=== PATIENT | female | born 1940 | race Caucasian/White ===

== ENCOUNTER 2018-12-29 20:14 | Emergency (ER) | payer MEDICARE, OTHER ==
[~2018-12-29] VITALS: Ht 152.4 cm; Wt 95.9 kg
[~2018-12-29 20:14] MED LIST: AMLO5TAB66 PO; ASPI81TA87 PO; CARV6.2534 PO; HYDR12.530 PO; INSU100C6 SQ; INSU3INS3 SQ; LISI40TA4 PO; OMEP-50 PO; ROSU10TA22 PO
[2018-12-29 21:11] LABS: GLUCOSE,POINT OF CARE 132 MG/DL (70-110)
[2018-12-29] MEDS ORDERED: XALA2.5OS OU (21:32)
[2018-12-29] MEDS ORDERED: CETI10TA59 PO (21:32)
[2018-12-29] MEDS ORDERED: HYDR-2924 PO (21:32)
[2018-12-29] MEDS ORDERED: CARV25 PO (21:32)
[2018-12-29] MEDS ORDERED: BRIM15DR8 OU (21:32)
[2018-12-29] MEDS ORDERED: ATOR20TA86 PO (21:32)
[2018-12-29] MEDS ORDERED: LOSA50TA64 PO (21:32)
[2018-12-29] MEDS ORDERED: INSLAN SQ (21:32)
[2018-12-29] MEDS ORDERED: INSNOV SQ ×2 (21:32)
[2018-12-29] MEDS ORDERED: NITR0.4T52 SL (21:32)
[2018-12-29] MEDS ORDERED: OMEP20 PO (21:32)
[2018-12-29] MEDS ORDERED: DULA0.75 SQ (21:32)
[2018-12-29] MEDS ORDERED: ADV100 IH (21:32)
[2018-12-29] MEDS ORDERED: ISOS10TA16 PO (21:32)
[2018-12-29 21:53] LABS: BASOPHILS % (AUTO) 1.1 % (0.0-2.0); HEMATOCRIT 39.3 % (36-46); HEMOGLOBIN 12.6 g/dL (12.0-16.0); LYMPHOCYTES # (AUTO) 2.3 K/uL (1.0-4.8); MEAN CORPUSCULAR HEMOGLOBIN 29.7 pg (26.0-34.0); MEAN CORPUSCULAR HGB CONC 32.2 G/dL (31.0-37.0); MEAN CORPUSCULAR VOLUME 92 fL (80-100); MONOCYTES # (AUTO) 0.9 K/uL (0.1-1.0); MONOCYTES % (AUTO) 8.7 % (2.0-9.0); NEUTROPHILS # (AUTO) 5.8 K/uL (1.8-7.7); NEUTROPHILS % (AUTO) 59.2 % (40.0-70.0); PLATELET COUNT (AUTO) 238 K/uL (150-450); RED BLOOD CELL COUNT(AUTO) 4.25 MIL/uL (4.00-5.20); RED CELL DISTRIBUTION WIDTH 13.1 % (11.5-14.5)
[2018-12-29 22:01] LABS: APPEARANCE,URINE CLEAR (CLEAR); BILIRUBIN,URINE NEGATIVE (NEGATIVE); GLUCOSE, URINE (UA) NEGATIVE (NEGATIVE); KETONES,URINE NEGATIVE (NEGATIVE); LEUKOCYTE ESTERASE ,URINE SMALL (NEGATIVE); NITRATE,URINE NEGATIVE (NEGATIVE); OCCULT BLOOD,URINE NEGATIVE (NEGATIVE); PROTEIN,URINE NEGATIVE (NEGATIVE); UROBILINOGEN,URINE 0.2 mg/dL (<=1.0)
[2018-12-29 22:02] LABS: CALCIUM, TOTAL 9.4 mg/dL (8.8-10.5); CREATININE 1.01 mg/dL (0.60-1.30); POTASSIUM 4.1 mmol/L (3.5-5.1)
[2018-12-29 22:08] LABS: ALBUMIN 3.6 g/dL (3.4-5.0); BILIRUBIN,TOTAL 0.4 mg/dL (0.1-1.0); TOTAL PROTEIN, SERUM 7.4 g/dL (6.4-8.2)
[2018-12-29 22:17] LABS: BACTERIA,URINE Rare /HPF (None Seen); RBC,URINE None Seen /HPF (0-2); SQUAMOUS EPITHELIAL CELL,UR Few /LPF (None Seen); WBC,URINE 0-2 /HPF (0-5)
[2018-12-29 22:58] VITALS: BP 141/72
== END 2018-12-29 23:01 | disposition home or self-care (01) ==
LOC: EMS 20:14
DX: R42 Dizziness and giddiness (principal); F41.9 Anxiety disorder, unspecified; I10 Essential (primary) hypertension; E11.9 Type 2 diabetes mellitus without complications; E78.00 Pure hypercholesterolemia, unspecified; Z79.899 Other long term (current) drug therapy; Z79.82 Long term (current) use of aspirin
CPT/HCPCS: 93005

== ENCOUNTER 2022-02-22 13:22 | Emergency (ER) | payer MEDICARE, OTHER ==
[~2022-02-22] VITALS: Ht 154.9 cm; Wt 81.8 kg
[~2022-02-22 13:22] MED LIST changes: -AMLO5TAB66 PO; +ATOR20TA86 PO; +BRIM15DR8 OU; +CARV25 PO; -CARV6.2534 PO; +CETI-450 PO; +DULA0.75 SQ; +FLUT1DIS4 IH; -HYDR12.530 PO; +HYDR50TA36 PO; +INSLAN SQ; +INSNOV SQ; -INSU100C6 SQ; -INSU3INS3 SQ; +ISOS10TA16 PO; -LISI40TA4 PO; +LOSA-382 PO; +NITR0.4T52 SL; -OMEP-50 PO; +OMEP20 PO; -ROSU10TA22 PO; +XALA2.5OS OU
[2022-02-22] MEDS ORDERED: ACETAMINOPHEN 500 MG TABLET PO ONE (15:15)
[2022-02-22 17:26] LABS: GLUCOMETER DEV NAME(LOC) ERT.5; GLUCOSE,POINT OF CARE 88 MG/DL (70-110)
[2022-02-22] MEDS ORDERED: INSU3INS3 SQ (18:22)
[2022-02-22] MEDS ORDERED: CARV12.530 PO (18:22)
[2022-02-22] MEDS ORDERED: ISOS30TA92 PO (18:22)
[2022-02-22] MEDS ORDERED: SPIR-37 PO (18:22)
[2022-02-22] MEDS ORDERED: NIFE-79 PO (18:22)
[2022-02-22] MEDS ORDERED: VALS160T31 PO (18:22)
[2022-02-22] MEDS ORDERED: NIFE30TA98 PO (18:22)
[2022-02-22] MEDS ORDERED: DAPA5TAB PO (18:22)
[2022-02-22] MEDS ORDERED: LATA2.5D14 OU (18:22)
[2022-02-22] MEDS ORDERED: FLUT16SP NASAL (18:22)
[2022-02-22] MEDS ORDERED: ATOR40TA71 PO (18:22)
[2022-02-22] MEDS ORDERED: ACET-66 PO (19:16)
[2022-02-22 19:19] VITALS: BP 110/61
== END 2022-02-22 19:45 | disposition home or self-care (01) ==
LOC: EMS 13:29
DX: S13.4XXA Sprain of ligaments of cervical spine, initial encounter (principal); S29.012A Strain of muscle and tendon of back wall of thorax, initial encounter; S00.83XA Contusion of other part of head, initial encounter; R04.0 Epistaxis; E11.9 Type 2 diabetes mellitus without complications; E78.00 Pure hypercholesterolemia, unspecified; I10 Essential (primary) hypertension; W01.0XXA Fall on same level from slipping, tripping and stumbling without subsequent striking against object, initial encounter; Y93.01 Activity, walking, marching and hiking; Y92.009 Unspecified place in unspecified non-institutional (private) residence as the place of occurrence of the external cause; Y99.8 Other external cause status
CPT/HCPCS: 70160; 72040; 72070; 82962; 99285

== ENCOUNTER 2024-05-17 02:56 | Inpatient (IN) | payer MEDICARE, OTHER ==
[~2024-05-17] VITALS: Ht 152.4 cm; Wt 92.1 kg
[~2024-05-17 02:56] MED LIST changes: +ACET-66 PO; -ATOR20TA86 PO; +ATOR40TA71 PO; -BRIM15DR8 OU; +BRIM5DRO9 OU; +CARV12.530 PO; -CARV25 PO; +DAPA5TAB PO; +FLUT16SP NASAL; -FLUT1DIS4 IH; -INSLAN SQ; -INSNOV SQ; +INSU3INS3 SQ; -ISOS10TA16 PO; +ISOS30TA92 PO; -LOSA-382 PO; +NIFE-79 PO; +SPIR-37 PO; +VALS160T31 PO
[2024-05-17 03:39] LABS: BASOPHILS % (AUTO) 1.1 % (0.0-2.0); HEMATOCRIT 39.4 % (36-46); HEMOGLOBIN 13.3 g/dL (12.0-16.0); LYMPHOCYTES # (AUTO) 2.1 K/uL (1.0-4.8); LYMPHOCYTES % (AUTO) 25.7 % (22.0-44.0); MEAN CORPUSCULAR HEMOGLOBIN 31.1 pg (26.0-34.0); MEAN CORPUSCULAR HGB CONC 33.9 G/dL (31.0-37.0); MEAN CORPUSCULAR VOLUME 92 fL (80-100); MONOCYTES # (AUTO) 0.9 K/uL (0.1-1.0); MONOCYTES % (AUTO) 10.4 % (2.0-9.0); NEUTROPHILS # (AUTO) 4.7 K/uL (1.8-7.7); NEUTROPHILS % (AUTO) 56.8 % (40.0-70.0); PLATELET COUNT (AUTO) 193 K/uL (150-450); RED BLOOD CELL COUNT(AUTO) 4.29 MIL/uL (4.00-5.20); RED CELL DISTRIBUTION WIDTH 12.9 % (11.5-14.5); WHITE BLOOD COUNT (AUTO) 8.4 K/uL (4.5-11.0)
[2024-05-17 04:05] LABS: CALCIUM, TOTAL 9.2 mg/dL (8.8-10.5); CREATININE 1.41 mg/dL (0.60-1.30); POTASSIUM 3.6 mmol/L (3.5-5.1)
[2024-05-17 04:11] LABS: ALBUMIN 3.4 g/dL (3.4-5.0); BILIRUBIN,DIRECT 0.2 mg/dL (0.00-0.20); BILIRUBIN,TOTAL 0.8 mg/dL (0.1-1.0); TOTAL PROTEIN, SERUM 7.1 g/dL (6.4-8.2)
[2024-05-17 04:13] LABS: TROPONIN I-HIGH SENSITIVITY 50 ng/L (<51)
[2024-05-17] MEDS: HydrALAZINE HCL 25 MG TABLET PO ONE (06:51)
[2024-05-17 07:13] LABS: TROPONIN I-HIGH SENSITIVITY 90 ng/L (<51)
[2024-05-17] MEDS: ASPIRIN 325 MG TABLET PO ONE (07:32)
[2024-05-17] MEDS ORDERED: ASPI-1444 PO (07:53)
[2024-05-17] MEDS ORDERED: [UNRECOGNIZED DRUG - CODE] SQ (07:53)
[2024-05-17] MEDS ORDERED: CETI10TA58 PO (07:53)
[2024-05-17] MEDS ORDERED: DULA1.5P SQ (07:53)
[2024-05-17] MEDS ORDERED: OMEP40CA21 PO (07:53)
[2024-05-17] MEDS ORDERED: ATOR-2 PO (07:53)
[2024-05-17] MEDS ORDERED: FLUT1BLS9 IH (07:53)
[2024-05-17] MEDS ORDERED: FLUT16H NASAL (07:53)
[2024-05-17] MEDS ORDERED: EZET10TA57 PO (07:53)
[2024-05-17] MEDS ORDERED: FLAS1KIT (07:53)
[2024-05-17 08:55] LABS: APPEARANCE,URINE HAZY (CLEAR); BILIRUBIN,URINE NEGATIVE (NEGATIVE); COLOR,URINE LIGHT YELLOW (YELLOW); GLUCOSE, URINE (UA) >=1000 mg/dL (NEGATIVE); KETONES,URINE NEGATIVE (NEGATIVE); LEUKOCYTE ESTERASE ,URINE MODERATE (NEGATIVE); NITRATE,URINE NEGATIVE (NEGATIVE); OCCULT BLOOD,URINE NEGATIVE (NEGATIVE); PROTEIN,URINE TRACE mg/dL (NEGATIVE); SPECIFIC GRAVITIY, URINE 1.008 (1.003-1.030); UROBILINOGEN,URINE <=1.0 mg/dL (<=1.0)
[2024-05-17] MEDS ORDERED: HEPARIN SODIUM,PORCINE 5,000 UNITS/ML VIAL IVP PRN ×3 (09:30→23:15)
[2024-05-17 09:51] LABS: RBC,URINE None Seen /HPF (0-2)
[2024-05-17 09:52] LABS: BACTERIA,URINE Moderate /HPF (None Seen); SQUAMOUS EPITHELIAL CELL,UR Few /LPF (None Seen)
[2024-05-17 11:53] LABS: PROTHROMBIN TIME 11.7 SEC (9.4-11.6)
[2024-05-17] MEDS: NIFEdipine 60 MG ER TABLET PO ONE (12:11)
[2024-05-17 12:52] VITALS: BP 162/116; PULSE 51; RESP 17; TEMP 97.3; O2SAT 97
[2024-05-17] MEDS: HEPARIN SODIUM 25000 UNITS/D5W 250 ML IV PRN ×2 (13:22→23:41)
[2024-05-17] MEDS ORDERED: MAGNESIUM HYDROXIDE SUSPENSION 30 ML UDCUP PO PRN (15:00)
[2024-05-17] MEDS ORDERED: BISACODYL 10 MG RECTAL RECTAL SUPPOSITORY PR PRN (15:00)
[2024-05-17] MEDS ORDERED: MORPHINE SULFATE 2 MG/ML SYRINGE IVP PRN (15:00)
[2024-05-17] MEDS ORDERED: ACETAMINOPHEN 325 MG TABLET PO PRN (15:00)
[2024-05-17] MEDS ORDERED: HYDROCODONE/ACETAMINOPHEN 5-325 MG TABLET PO PRN (15:00)
[2024-05-17] MEDS ORDERED: ONDANSETRON HCL 4 MG/2 ML VIAL IVP PRN (15:00)
[2024-05-17] MEDS ORDERED: ZOLPIDEM TARTRATE 5 MG TABLET PO PRN (15:00)
[2024-05-17] MEDS ORDERED: DEXTROSE 50%-WATER 25 GM/50 ML SYRINGE IVP PRN (15:00)
[2024-05-17] MEDS: INSULIN LISPRO 100 UNITS/ML SQ PRN (18:25)
[2024-05-17] MEDS: AMIODARONE HCL 150 MG in DEXTROSE 5%-WATER 97 ML IV ONE (18:39)
[2024-05-17] MEDS: AMIODARONE HCL 360 MG in DEXTROSE 5%-WATER 242.8 ML IV ONE (18:56)
[2024-05-17 18:58] VITALS: BP 113/72; PULSE 98; RESP 18; TEMP 98.4; O2SAT 98
[2024-05-17 20:31] LABS: GLUCOMETER DEV NAME(LOC) 5N.2C; GLUCOSE,POINT OF CARE 178 MG/DL (70-110)
[2024-05-17] MEDS: CARVEDILOL 12.5 MG TABLET PO SCH (21:00)
[2024-05-17] MEDS: DOCUSATE SODIUM 100 MG CAPSULE PO SCH (21:00)
[2024-05-17] MEDS: ATORVASTATIN CALCIUM 40 MG TABLET PO SCH (21:24)
[2024-05-17] MEDS: BRIMONIDINE TARTRATE 0.2% 5 ML OPHTHALMIC SOLUTION OU SCH (21:24)
[2024-05-17] MEDS: INSULIN GLARGINE,HUM.REC.ANLOG 100 UNITS/ML SQ SCH (21:26)
[2024-05-17 21:31] LABS: GLUCOMETER DEV NAME(LOC) 5N.2C; GLUCOSE,POINT OF CARE 207 MG/DL (70-110)
[2024-05-17 22:24] LABS: TROPONIN I-HIGH SENSITIVITY 170 ng/L (<51)
[2024-05-17] MEDS: HEPARIN SODIUM,PORCINE 5,000 UNITS/ML VIAL SQ SCH (23:31)
[2024-05-17] MEDS: AMIODARONE HCL 540 MG in DEXTROSE 5%-WATER 239.2 ML IV ONE (23:37)
[2024-05-17] MEDS: HEPARIN SODIUM,PORCINE 5,000 UNITS/ML VIAL IVP PRN (23:45)
[2024-05-18 06:32] VITALS: BP 126/73; PULSE 59; RESP 18; TEMP 97.9; O2SAT 99
[2024-05-18 06:59] LABS: CALCIUM, TOTAL 8.9 mg/dL (8.8-10.5); CREATININE 1.17 mg/dL (0.60-1.30); POTASSIUM 3.2 mmol/L (3.5-5.1)
[2024-05-18 07:00] LABS: BASOPHILS % (AUTO) 0.9 % (0.0-2.0); HEMATOCRIT 40.5 % (36-46); HEMOGLOBIN 13.7 g/dL (12.0-16.0); LYMPHOCYTES # (AUTO) 2.2 K/uL (1.0-4.8); LYMPHOCYTES % (AUTO) 26.2 % (22.0-44.0); MEAN CORPUSCULAR HEMOGLOBIN 31.2 pg (26.0-34.0); MEAN CORPUSCULAR HGB CONC 33.7 G/dL (31.0-37.0); MEAN CORPUSCULAR VOLUME 93 fL (80-100); MONOCYTES # (AUTO) 0.9 K/uL (0.1-1.0); MONOCYTES % (AUTO) 10.9 % (2.0-9.0); PLATELET COUNT (AUTO) 205 K/uL (150-450); RED BLOOD CELL COUNT(AUTO) 4.37 MIL/uL (4.00-5.20); RED CELL DISTRIBUTION WIDTH 12.7 % (11.5-14.5); WHITE BLOOD COUNT (AUTO) 8.5 K/uL (4.5-11.0)
[2024-05-18 07:11] LABS: TROPONIN I-HIGH SENSITIVITY 171 ng/L (<51)
[2024-05-18 08:11] LABS: GLUCOMETER DEV NAME(LOC) 5N.1D; GLUCOSE,POINT OF CARE 154 MG/DL (70-110)
[2024-05-18 08:24] VITALS: BP 132/68; PULSE 56; RESP 17; TEMP 97.9; O2SAT 100
[2024-05-18] MEDS: EZETIMIBE 10 MG TABLET PO SCH (09:37)
[2024-05-18] MEDS: ISOSORBIDE MONONITRATE 30 MG ER TABLET PO SCH (09:40)
[2024-05-18] MEDS: CETIRIZINE HCL 10 MG TABLET PO SCH (09:40)
[2024-05-18] MEDS: VALSARTAN 160 MG TABLET PO SCH (09:41)
[2024-05-18] MEDS: ASPIRIN 81 MG DR TABLET PO SCH (09:41)
[2024-05-18] MEDS: PANTOPRAZOLE SODIUM 40 MG DR TABLET PO SCH (09:42)
[2024-05-18] MEDS: DAPAGLIFLOZIN PROPANEDIOL 5 MG TABLET PO SCH (09:43)
[2024-05-18] MEDS ORDERED: SESTAMIBI TC99M/UD ISOTOPE 1 EA INJ INJ ONE ×2 (10:50→14:15)
[2024-05-18 11:23] VITALS: BP 108/61; PULSE 58; RESP 17; TEMP 98.3; O2SAT 99
[2024-05-18] MEDS: REGADENOSON 0.4 MG/5 ML PF SYRINGE IVP ONE (14:48)
[2024-05-18 15:45] VITALS: BP 118/52; PULSE 57; RESP 17; TEMP 98; O2SAT 98
[2024-05-18] MEDS: METOPROLOL TARTRATE 25 MG TABLET PO SCH (16:47)
[2024-05-18 16:50] LABS: GLUCOMETER DEV NAME(LOC) 5N.2C; GLUCOSE,POINT OF CARE 182 MG/DL (70-110)
[2024-05-18] MEDS ORDERED: AMIODARONE HCL 750 MG in DEXTROSE 5%-WATER 485 ML IV SCH (17:30)
[2024-05-18 21:41] VITALS: BP 156/73; PULSE 55; RESP 18; TEMP 98.4; O2SAT 100
[2024-05-19] VITALS (12 sets, daily range): BP systolic 111–149; BP diastolic 43–73; PULSE 61–81; RESP 16–19; TEMP 97.6–100.1; O2SAT 96–99
[2024-05-19 00:15] LABS: GLUCOMETER DEV NAME(LOC) 5N.2C; GLUCOSE,POINT OF CARE 171 MG/DL (70-110)
[2024-05-19 00:15] LABS: GLUCOMETER DEV NAME(LOC) 5N.1D; GLUCOSE,POINT OF CARE 195 MG/DL (70-110)
[2024-05-19 08:22] LABS: BASOPHILS % (AUTO) 0.7 % (0.0-2.0); EOSINOPHILS % (AUTO) 3.6 % (1.0-6.0); HEMATOCRIT 34.8 % (36-46); HEMOGLOBIN 11.9 g/dL (12.0-16.0); LYMPHOCYTES # (AUTO) 1.8 K/uL (1.0-4.8); LYMPHOCYTES % (AUTO) 17.3 % (22.0-44.0); MEAN CORPUSCULAR HEMOGLOBIN 31.4 pg (26.0-34.0); MEAN CORPUSCULAR VOLUME 92 fL (80-100); MONOCYTES # (AUTO) 1.1 K/uL (0.1-1.0); MONOCYTES % (AUTO) 10.4 % (2.0-9.0); NEUTROPHILS # (AUTO) 7.2 K/uL (1.8-7.7); PLATELET COUNT (AUTO) 183 K/uL (150-450); RED BLOOD CELL COUNT(AUTO) 3.78 MIL/uL (4.00-5.20); WHITE BLOOD COUNT (AUTO) 10.5 K/uL (4.5-11.0)
[2024-05-19 08:41] LABS: CALCIUM, TOTAL 8.2 mg/dL (8.8-10.5); CREATININE 1.48 mg/dL (0.60-1.30)
[2024-05-19 08:48] LABS: POTASSIUM 2.9 mmol/L (3.5-5.1)
[2024-05-19 08:56] LABS: GLUCOMETER DEV NAME(LOC) 5N.1D; GLUCOSE,POINT OF CARE 167 MG/DL (70-110)
[2024-05-19] MEDS: POTASSIUM CHLORIDE 10% 40 MEQ/30 ML LIQUID UDCUP PO ONE (12:09)
[2024-05-19] MEDS: FUROSEMIDE 20 MG/2 ML VIAL IVP SCH (12:09)
[2024-05-19 13:40] LABS: MAGNESIUM 2.2 mg/dL (1.80-2.40)
[2024-05-19] MEDS: APIXABAN 2.5 MG TABLET PO SCH (21:01)
[2024-05-20 00:32] VITALS: BP 120/53; PULSE 64; RESP 19; TEMP 98.3; O2SAT 100
[2024-05-20 00:56] LABS: GLUCOMETER DEV NAME(LOC) 5N.2C; GLUCOSE,POINT OF CARE 247 MG/DL (70-110)
[2024-05-20 00:56] LABS: GLUCOMETER DEV NAME(LOC) 5N.2C; GLUCOSE,POINT OF CARE 264 MG/DL (70-110)
[2024-05-20 00:56] LABS: GLUCOMETER DEV NAME(LOC) 5N.2C; GLUCOSE,POINT OF CARE 227 MG/DL (70-110)
[2024-05-20 06:00] VITALS: BP 150/58; PULSE 67; RESP 17; TEMP 98; O2SAT 100
[2024-05-20 07:15] LABS: GLUCOMETER DEV NAME(LOC) 5N.2C; GLUCOSE,POINT OF CARE 183 MG/DL (70-110)
[2024-05-20 07:43] VITALS: BP 155/71; PULSE 67; RESP 18; TEMP 99.1; O2SAT 99
[2024-05-20 08:03] LABS: CALCIUM, TOTAL 8.1 mg/dL (8.8-10.5); CREATININE 1.68 mg/dL (0.60-1.30); POTASSIUM 3.8 mmol/L (3.5-5.1)
[2024-05-20] MEDS ORDERED: METO25 PO (08:06)
[2024-05-20] MEDS ORDERED: AMOX1TAB15 PO (08:06)
[2024-05-20] MEDS ORDERED: APIX2.5T PO (08:06)
[2024-05-20 08:27] LABS: BASOPHILS % (AUTO) 0.4 % (0.0-2.0); EOSINOPHILS % (AUTO) 2.7 % (1.0-6.0); HEMATOCRIT 28.5 % (36-46); HEMOGLOBIN 9.5 g/dL (12.0-16.0); LYMPHOCYTES # (AUTO) 1.5 K/uL (1.0-4.8); LYMPHOCYTES % (AUTO) 17.6 % (22.0-44.0); MEAN CORPUSCULAR HEMOGLOBIN 30.8 pg (26.0-34.0); MEAN CORPUSCULAR HGB CONC 33.2 G/dL (31.0-37.0); MEAN CORPUSCULAR VOLUME 93 fL (80-100); MONOCYTES # (AUTO) 0.9 K/uL (0.1-1.0); MONOCYTES % (AUTO) 11.4 % (2.0-9.0); NEUTROPHILS # (AUTO) 5.6 K/uL (1.8-7.7); NEUTROPHILS % (AUTO) 67.9 % (40.0-70.0); PLATELET COUNT (AUTO) 154 K/uL (150-450); RED BLOOD CELL COUNT(AUTO) 3.07 MIL/uL (4.00-5.20); RED CELL DISTRIBUTION WIDTH 13.1 % (11.5-14.5); WHITE BLOOD COUNT (AUTO) 8.3 K/uL (4.5-11.0)
[2024-05-20] MEDS: AMOX TR/POT CLAV 500 MG/125 MG TABLET PO SCH (09:21)
[2024-05-20 12:11] VITALS: BP 111/60; PULSE 72; RESP 18; TEMP 98.1; O2SAT 98
[2024-05-20 12:36] LABS: GLUCOMETER DEV NAME(LOC) 5S.2D; GLUCOSE,POINT OF CARE 270 MG/DL (70-110)
[2024-05-20 15:02] VITALS: BP 156/67; PULSE 68; RESP 18; TEMP 98; O2SAT 97
[2024-05-20] MEDS: SODIUM CHLORIDE 0.9% 250 ML IV ONE (15:43)
[2024-05-20 18:10] LABS: GLUCOMETER DEV NAME(LOC) 5S.2D; GLUCOSE,POINT OF CARE 210 MG/DL (70-110)
[2024-05-20 20:00] VITALS: BP 177/72; PULSE 81; RESP 18; TEMP 98.1; O2SAT 94
[2024-05-21] VITALS: BP 133/65; PULSE 68; RESP 16; TEMP 95; TEMP 98.2; O2SAT 95
[2024-05-21 05:00] VITALS: BP 171/72; PULSE 70; RESP 17; TEMP 98.2; O2SAT 96
[2024-05-21 07:49] LABS: BASOPHILS % (AUTO) 0.7 % (0.0-2.0); EOSINOPHILS % (AUTO) 3.5 % (1.0-6.0); HEMATOCRIT 26.8 % (36-46); HEMOGLOBIN 9.1 g/dL (12.0-16.0); LYMPHOCYTES # (AUTO) 1.2 K/uL (1.0-4.8); LYMPHOCYTES % (AUTO) 17.3 % (22.0-44.0); MEAN CORPUSCULAR HEMOGLOBIN 31.4 pg (26.0-34.0); MEAN CORPUSCULAR HGB CONC 33.8 G/dL (31.0-37.0); MEAN CORPUSCULAR VOLUME 93 fL (80-100); MONOCYTES # (AUTO) 1.1 K/uL (0.1-1.0); MONOCYTES % (AUTO) 16.1 % (2.0-9.0); NEUTROPHILS # (AUTO) 4.2 K/uL (1.8-7.7); NEUTROPHILS % (AUTO) 62.4 % (40.0-70.0); PLATELET COUNT (AUTO) 138 K/uL (150-450); RED BLOOD CELL COUNT(AUTO) 2.89 MIL/uL (4.00-5.20); WHITE BLOOD COUNT (AUTO) 6.8 K/uL (4.5-11.0)
[2024-05-21 08:01] LABS: CALCIUM, TOTAL 8.2 mg/dL (8.8-10.5); CREATININE 1.42 mg/dL (0.60-1.30)
[2024-05-21 08:40] VITALS: BP 144/101; PULSE 76; RESP 18; TEMP 98.4; O2SAT 94
[2024-05-21 11:00] VITALS: PULSE 86; RESP 18; O2SAT 95; O2SAT 97
[2024-05-21 11:28] VITALS: BP 121/68; PULSE 77; RESP 18; TEMP 98.4; O2SAT 95
[2024-05-21] MEDS ORDERED: IPRA4AER IH (11:56)
[2024-05-21] MEDS: IPRATROPIUM BROMIDE 0.5 MG/2.5 ML NEB SOLUTION NEB PRN (13:02)
[2024-05-21] MEDS: ALBUTEROL SULFATE 2.5 MG/0.5 ML NEB SOLUTION NEB PRN (13:02)
[2024-05-21 16:51] LABS: GLUCOMETER DEV NAME(LOC) 5S.2D; GLUCOSE,POINT OF CARE 238 MG/DL (70-110)
[2024-05-21 23:11] LABS: GLUCOMETER DEV NAME(LOC) 5N.2C; GLUCOSE,POINT OF CARE 217 MG/DL (70-110)
[2024-05-21 23:11] LABS: GLUCOMETER DEV NAME(LOC) 5N.2C; GLUCOSE,POINT OF CARE 170 MG/DL (70-110)
== END 2024-05-21 14:00 | disposition home or self-care (01) | DRG 280 ==
LOC: EMS 02:57 → EDH 09:05 → 5S 12:40
PROVIDERS: ADMIT Internal Medicine; ATTEND Internal Medicine
DX: I21.4 Non-ST elevation (NSTEMI) myocardial infarction (principal); I50.31 Acute diastolic (congestive) heart failure; I13.0 Hypertensive heart and chronic kidney disease with heart failure and stage 1 through stage 4 chronic kidney disease, or unspecified chronic kidney disease; N17.9 Acute kidney failure, unspecified; K21.9 Gastro-esophageal reflux disease without esophagitis; J45.909 Unspecified asthma, uncomplicated; E78.5 Hyperlipidemia, unspecified; I48.91 Unspecified atrial fibrillation; E11.22 Type 2 diabetes mellitus with diabetic chronic kidney disease; E87.6 Hypokalemia; N18.9 Chronic kidney disease, unspecified; E66.3 Overweight; K59.00 Constipation, unspecified; Z79.01 Long term (current) use of anticoagulants; Z79.4 Long term (current) use of insulin; Z79.899 Other long term (current) drug therapy; Z68.39 Body mass index [BMI] 39.0-39.9, adult
CPT/HCPCS: 71045; 78452; 80048; 80076; 81001; 82962; 83735; 83880; 84484; 85025; 85610; 85730; 87086; 93005; 93306; 94640; 97162; 97530; 99285; A9500; G0378; J0282; J1644; J1815; J1940; J7050; J7060; 36415-L1; 36415-TC